=== PATIENT | male | born 1995 | race Two or more races ===

== ENCOUNTER 2023-12-08 10:46 | Emergency (ER) | payer OTHER ==
[~2023-12-08] VITALS: Ht 170.2 cm; Wt 59.0 kg
[2023-12-08] MEDS: IV NORMAL SALINE 1000 ML BAG IV ONE (11:15)
[2023-12-08] MEDS ORDERED: HYDROMORPHONE 1 MG/1 ML DISP.SYRIN ONE ×2 (11:18→12:36)
[2023-12-08] MEDS ORDERED: ONDANSETRON 4 MG/2 ML VIAL ONE (11:18)
[2023-12-08] MEDS: ONDANSETRON 4 MG/2 ML VIAL IV ONE (11:23)
[2023-12-08] MEDS: HYDROMORPHONE 1 MG/1 ML DISP.SYRIN IV ONE ×2 (11:23→12:38)
[2023-12-08 11:38] LABS: CALCIUM 9.3 mg/dL (8.5-10.1); CREATININE 1.1 mg/dL (0.6-1.3); POTASSIUM 3.4 mmol/L (3.5-5.1)
[2023-12-08 11:44] LABS: ALBUMIN 4.5 g/dL (3.4-5.0); BILIRUBIN,DIRECT 0.1 mg/dL (0.0-0.2); BILIRUBIN,TOTAL 0.4 mg/dL (0.2-1.0); TOTAL PROTEIN, SERUM 7.6 g/dL (6.4-8.2)
[2023-12-08 11:48] LABS: BASOPHILS % (AUTO) 0.4 % (0.0-2.0); EOSINOPHILS # (AUTO) 0.1 K/uL (0.0-0.7); HEMATOCRIT 45.9 % (36.7-47.1); HEMOGLOBIN 15.7 g/dL (12.5-16.3); LYMPHOCYTES # (AUTO) 1.6 K/uL (0.8-4.8); LYMPHOCYTES % (AUTO) 18.2 % (20.5-51.5); MEAN CORPUSCULAR HEMOGLOBIN 29.7 uug (23.8-33.4); MEAN CORPUSCULAR HGB CONC 34 g/dL (32.5-36.3); MEAN CORPUSCULAR VOLUME 86.6 fL (73.0-96.2); MONOCYTES # (AUTO) 0.4 K/uL (0.1-1.30); MONOCYTES % (AUTO) 4.7 % (0.0-11.0); NEUTROPHILS # (AUTO) 6.7 K/uL (1.8-8.9); NEUTROPHILS % (AUTO) 75.7 % (38.5-71.5); PLATELET COUNT (AUTO) 185 K/uL (152-348); RED CELL DISTRIBUTION WIDTH 12.7 % (12.1-16.2); WHITE BLOOD COUNT (AUTO) 8.8 K/uL (3.6-10.2)
[2023-12-08 12:04] LABS: DIFFERENTIAL COMMENT 1
[2023-12-08 12:15] LABS: *BILIRUBIN,URIN NEGATIVE (NEGATIVE); *BLOOD, URINE 3+ (NEGATIVE); *CLARITY,URINE CLOUDY (CLEAR); *COLOR,URINE YELLOW (YELLOW); *KETONES,URINE 1+ (NEGATIVE); *PROTEIN,URINE 2+ (NEGATIVE); *UROBILINOGEN,URINE 0.2 E.U./dl (NORMAL); LEUKOCYTE ESTERASE ,URINE NEGATIVE (NEGATIVE); NITRITE, URINE NEGATIVE (NEGATIVE); PH,URINE 8.5 (5.0-8.0); UGLUCOSE NEGATIVE (NEGATIVE)
[2023-12-08] MEDS ORDERED: KETOROLAC TROMETHAMINE 30 MG INJ ONE (12:29)
[2023-12-08] MEDS: IV NS 1000 ML 1,000 ML IV ONE (12:35)
[2023-12-08] MEDS: KETOROLAC TROMETHAMINE 30 MG INJ IVP ONE (12:35)
[2023-12-08 13:30] VITALS: O2SAT 99
[2023-12-08] MEDS ORDERED: KETO10TA2 PO (13:38)
[2023-12-08] MEDS ORDERED: PROC-11 PO (13:38)
[2023-12-08] MEDS ORDERED: HYDR-3980 PO (13:38)
[2023-12-08 14:40] LABS: RBC,URINE 80-100 /HPF (0-3); WBC,URINE 0-3 /HPF (0-3)
[2023-12-08 14:41] LABS: BACTERIA,URINE MODERATE /HPF (NONE SEEN); SQUAMOUS EPITHELIAL CELL,UR FEW /HPF (NONE SEEN); URINE AMORPHOUS PHOSPHATES MANY /HPF
== END 2023-12-08 13:51 | disposition home or self-care (01) ==
LOC: ER 10:46
DX: N20.1 Calculus of ureter (principal)
CPT/HCPCS: 99285; 74176; 96374; 96375; 96361; 80076; 80048; 81001; 85025; 36415; 96376; 87086; J1885; J2405; J1170 ×2; J7040 ×2; A4606; A4663